=== PATIENT | female | born 1940 | race Caucasian/White ===

== ENCOUNTER 2021-05-15 15:43 | Inpatient (IN) | payer MEDICARE, MEDICAID ==
[~2021-05-15] VITALS: Ht 157.5 cm; Wt 59.0 kg
[2021-05-15] MEDS ORDERED: ONDANSETRON HCL 4MG/2ML INJ IV STA (16:09)
[2021-05-15] MEDS ORDERED: ACETAMINOPHEN 325MG TABLET PO ONE (16:15)
[2021-05-15] MEDS ORDERED: SODIUM CHLORIDE 0.9% 1,000 ML IV ONE ×2 (16:15→19:30)
[2021-05-15 16:54] LABS: BASOPHILS % 0.8 % (0.0-2.0); EOSINOPHILS % 3.6 % (0.0-5.0); HEMATOCRIT. 37.1 % (36.0-48.0); HEMOGLOBIN. 12.2 g/dL (12.0-16.0); LYMPHOCYTES % 12.2 % (20.0-50.0); MEAN CORPUSCULAR HEMOGLOBIN 30.3 pg (28.0-32.0); MEAN CORPUSCULAR VOLUME 92.1 fL (81.0-99.0); MEAN PLATELET VOLUME 8.7 fl (7.4-10.4); NEUTROPHILS % 74.4 % (40.0-76.0); PLATELET 196 x1000/uL (130-400); RED BLOOD CELL COUNT 4.03 mill/uL (4.2-5.4); RED CELL DISTRIBUTION WIDTH 14.8 % (11.6-14.6)
[2021-05-15 17:00] LABS: CHLORIDE 103 mEq/L (98-107)
[2021-05-15 17:03] LABS: INR 1.1; PARTIAL THROMBOPLASTIN TIME 29.1 sec (23.4-31.0); PROTHROMBIN TIME 11.4 sec (9.6-11.0)
[2021-05-15] MEDS ORDERED: MORPHINE SULFATE 2 MG/ML CPJ (NOT FOR IM USE) IV PRN (18:45)
[2021-05-15] MEDS ORDERED: CLONIDINE 0.1MG TABLET PO PRN (18:45)
[2021-05-15] MEDS ORDERED: ONDANSETRON HCL 4MG/2ML INJ IV PRN (18:45)
[2021-05-15] MEDS ORDERED: MAGNESIUM/ALUMINUM HYDROXIDE/SIMETHICONE 30ML UDC PO PRN (18:45)
[2021-05-15] MEDS: AMLODIPINE 10MG TABLET PO SCH (18:45)
[2021-05-15] MEDS ORDERED: NALOXONE HCL 0.4MG/ML VIAL IV PRN (19:15)
[2021-05-15] MEDS ORDERED: AZITHROMYCIN 500MG/250ML 250 ML IV ONE (19:30)
[2021-05-15] MEDS ORDERED: ASPIRIN 325MG EC TABLET PO ONE (19:30)
[2021-05-15] MEDS ORDERED: CEFTRIAXONE 1 G PREMIX 50 ML IV ONE (19:30)
[2021-05-15] MEDS ORDERED: IOHEXOL-350 100 ML BOTTLE ONE (20:55)
[2021-05-15 22:33] LABS: CLARITY URINE CLEAR (CLEAR); COLOR URINE YELLOW (YELLOW); KETONES URINE NEGATIVE (NEGATIVE); LEUKOCYTE ESTERASE URINE NEGATIVE (NEGATIVE); NITRITE URINE NEGATIVE (NEGATIVE); OCCULT BLOOD URINE NEGATIVE (NEGATIVE); PROTEIN URINE NEGATIVE (NEGATIVE); SPECIFIC GRAVITY URINE 1.022 (1.005-1.030); UROBILINOGEN URINE 0.2 E.U./dL (0.2-1.0)
[2021-05-16] VITALS (7 sets, daily range): BP systolic 115–149; BP diastolic 52–69
[2021-05-16] MEDS ORDERED: METO25TA6 PO (02:07)
[2021-05-16] MEDS ORDERED: VENL150C52 PO (02:07)
[2021-05-16] MEDS ORDERED: APIX5TAB PO (02:07)
[2021-05-16 06:55] LABS: BASOPHILS % 0.7 % (0.0-2.0); EOSINOPHILS % 3.5 % (0.0-5.0); HEMATOCRIT. 37.1 % (36.0-48.0); LYMPHOCYTES % 16.6 % (20.0-50.0); MEAN CORPUSCULAR HEMOGLOBIN 30.1 pg (28.0-32.0); MEAN PLATELET VOLUME 9.3 fl (7.4-10.4); MONOCYTES % 10.9 % (2.0-8.0); NEUTROPHILS % 68.3 % (40.0-76.0); PLATELET 177 x1000/uL (130-400); RED BLOOD CELL COUNT 3.99 mill/uL (4.2-5.4); RED CELL DISTRIBUTION WIDTH 15.1 % (11.6-14.6)
[2021-05-16 07:09] LABS: CHLORIDE 104 mEq/L (98-107)
[2021-05-16 07:22] LABS: LDL CHOLESTEROL 70 mg/dL (5-100)
[2021-05-16 07:23] LABS: HDL CHOLESTEROL 68 mg/dL (40-59)
[2021-05-16] MEDS: AMLODIPINE 10MG TABLET PO SCH (09:00)
[2021-05-16] MEDS: ASPIRIN 81MG EC TABLET PO SCH (09:00)
[2021-05-16] MEDS: ACETAMINOPHEN 325MG TABLET PO PRN ×2 (10:27→22:05)
[2021-05-16] MEDS: APIXABAN 5 MG TABLET PO SCH ×2 (10:27→18:18)
[2021-05-16] MEDS: METOPROLOL TARTRATE 25MG TABLET PO SCH ×2 (11:55→20:44)
[2021-05-16] MEDS: VENLAFAXINE HCL 37.5MG SR CAPSULE 24HR PO SCH (14:05)
[2021-05-17] VITALS: BP 137/62
[2021-05-17 04:00] VITALS: BP 124/49
[2021-05-17 08:00] VITALS: BP 110/52
[2021-05-17] MEDS: ASPIRIN 81MG EC TABLET PO SCH (09:00)
[2021-05-17] MEDS: AMLODIPINE 10MG TABLET PO SCH ×2 (09:00→09:16)
[2021-05-17] MEDS: METOPROLOL TARTRATE 25MG TABLET PO SCH (09:27)
[2021-05-17] MEDS: VENLAFAXINE HCL 37.5MG SR CAPSULE 24HR PO SCH (09:27)
[2021-05-17] MEDS: APIXABAN 5 MG TABLET PO SCH (09:27)
[2021-05-17] MEDS: ACETAMINOPHEN 325MG TABLET PO PRN (09:28)
[2021-05-17 12:00] VITALS: BP 134/71
[2021-05-17 14:01] VITALS: BP 134/71
== END 2021-05-17 14:35 | disposition home or self-care (01) | DRG 445 ==
LOC: ER 15:43 → MICUSO 19:24 → EDBEDREQTM 19:31 → EDBEDREQ 19:31 → ENRESERV 20:17 → 5WST 23:30
PROVIDERS: ADMIT Hospitalist; ATTEND Hospitalist
DX: K80.20 Calculus of gallbladder without cholecystitis without obstruction (principal); D68.59 Other primary thrombophilia; R07.9 Chest pain, unspecified; I10 Essential (primary) hypertension; I25.10 Atherosclerotic heart disease of native coronary artery without angina pectoris; K83.8 Other specified diseases of biliary tract; Z20.822 Contact with and (suspected) exposure to COVID-19; N28.1 Cyst of kidney, acquired; M54.9 Dorsalgia, unspecified; K82.8 Other specified diseases of gallbladder; Q27.8 Other specified congenital malformations of peripheral vascular system; Z88.5 Allergy status to narcotic agent; Z95.2 Presence of prosthetic heart valve; Z79.01 Long term (current) use of anticoagulants; Z79.899 Other long term (current) drug therapy; Z88.6 Allergy status to analgesic agent
CPT/HCPCS: 36415; 71045; 71275; 74174; 76700; 80053; 80061; 81003; 83605; 83880; 84484; 85025; 86850; 86900; 87426; 93005; 93306; 99285; J0696; J7030; Q9967